=== PATIENT | male | born 1945 | race Caucasian/White ===

== ENCOUNTER 2016-05-23 06:00 | Day surgery (SDC) | payer OTHER ==
[~2016-05-23] VITALS: Ht 165.1 cm; Wt 71.4 kg
[2016-05-23] MEDS ORDERED: SODIUM CHLORIDE 0.9% 1,000 ML IV ONE (06:30)
[2016-05-23] MEDS ORDERED: ALPR0.5T8 PO (07:04)
[2016-05-23] MEDS ORDERED: TRAZ-147 PO (07:04)
[2016-05-23] MEDS ORDERED: SIMV10 PO (07:04)
[2016-05-23] MEDS ORDERED: LEVO500 PO (07:04)
[2016-05-23] MEDS ORDERED: PRED10 PO (07:04)
[2016-05-23] MEDS ORDERED: LOSA1TAB37 PO (07:04)
[2016-05-23] MEDS ORDERED: MONT10TA21 PO (07:04)
[2016-05-23] MEDS ORDERED: FAMO20 PO (07:04)
[2016-05-23] MEDS ORDERED: CITA10TA68 PO (07:04)
[2016-05-23] MEDS ORDERED: MethylPREDNISolone SOD SUCC 125 MG/2 ML VIAL IVP ONE (08:45)
[2016-05-23] MEDS ORDERED: ALBUTEROL SULFATE 2.5 MG/0.5 ML NEB SOLUTION NEB ONE (17:38)
[2016-05-23] MEDS ORDERED: LIDOCAINE HCL 2% 30 ML JELLY TP ONE (17:38)
[2016-05-23] MEDS ORDERED: LIDOCAINE HCL 4% 50 ML SOLUTION TP ONE (17:38)
[2016-05-23] MEDS ORDERED: BENZOCAINE 20% 50 MCG/SPRAY 57 GM TP ONE (17:38)
[2016-05-23] MEDS ORDERED: OXYGEN THERAPY IH SCH (20:00)
== END 2016-05-23 10:25 | disposition home or self-care (01) ==
LOC: SURGERY 06:00
PROVIDERS: ATTEND Internal Medicine Critical Care Medicine
DX: J38.4 Edema of larynx (principal); I10 Essential (primary) hypertension; E78.00 Pure hypercholesterolemia, unspecified; M19.90 Unspecified osteoarthritis, unspecified site; Z87.891 Personal history of nicotine dependence
CPT/HCPCS: 31623; 31624; 87015; 87070; 87101; 87147; 87205; 87220; 88108; 88312

== ENCOUNTER 2018-06-11 06:52 | Day surgery (SDC) | payer OTHER ==
[~2018-06-11] VITALS: Ht 165.1 cm; Wt 78.6 kg
[~2018-06-11 06:52] MED LIST: ALPR0.5T8 PO; CITA10TA68 PO; FAMO20 PO; LEVO500 PO; LOSA1TAB37 PO; MONT10TA21 PO; PRED10 PO; SIMV-259 PO; TRAZ-220 PO
[2018-06-11] MEDS ORDERED: BENZOCAINE 20% 50 MCG/SPRAY 57 GM TP ONE (06:53)
[2018-06-11] MEDS ORDERED: ALBUTEROL SULFATE 2.5 MG/0.5 ML NEB SOLUTION NEB ONE (06:53)
[2018-06-11] MEDS ORDERED: LIDOCAINE 2% 30 ML JELLY TP ONE (06:53)
[2018-06-11] MEDS ORDERED: LIDOCAINE 4% 50 ML SOLUTION TP ONE (06:53)
[2018-06-11] MEDS ORDERED: SODIUM CHLORIDE 0.9% 1,000 ML IV ONE ×2 (07:00→07:17)
[2018-06-11] MEDS ORDERED: MIDAZOLAM HCL 2 MG/2 ML VIAL ONE (08:06)
[2018-06-11] MEDS ORDERED: FentaNYL CITRATE-PF 100 MCG/2 ML VIAL ONE (08:06)
[2018-06-11] MEDS ORDERED: MethylPREDNISolone SOD SUCC 125 MG/2 ML VIAL IVP ONE (09:00)
[2018-06-11] MEDS ORDERED: MethylPREDNISolone SOD SUCC 125 MG/2 ML VIAL ONE (09:25)
[2018-06-11] MEDS ORDERED: OXYGEN THERAPY IH SCH (20:00)
== END 2018-06-11 10:50 | disposition home or self-care (01) ==
LOC: SURGERY 06:52
PROVIDERS: ATTEND Internal Medicine Critical Care Medicine
DX: J38.4 Edema of larynx (principal); B37.0 Candidal stomatitis; J45.909 Unspecified asthma, uncomplicated; Z72.89 Other problems related to lifestyle; Z98.890 Other specified postprocedural states
CPT/HCPCS: 31623; 31624; 71045; 87015; 87070; 87101; 87205; 87206; 87220; 88108; 88312; J2250; J2930; J3010; J7030

== ENCOUNTER 2019-08-23 06:31 | Day surgery (SDC) | payer OTHER ==
[~2019-08-23] VITALS: Ht 167.6 cm; Wt 83.0 kg
[~2019-08-23 06:31] MED LIST changes: -CITA10TA68 PO; +CITA10TA99 PO; +LEVO-72 PO; -LEVO500 PO; +SODIUM CHLORIDE 0.9% 1,000 ML IV ONE; +SODIUM CHLORIDE 0.9% 1,000 ML ONE; -TRAZ-220 PO; +TRAZ-257 PO
[2019-08-23] MEDS ORDERED: ALBUTEROL SULFATE 2.5 MG/0.5 ML NEB SOLUTION NEB ONE (06:32)
[2019-08-23] MEDS ORDERED: LIDOCAINE 2% 30 ML JELLY TP ONE (06:32)
[2019-08-23] MEDS ORDERED: BENZOCAINE 20% 50 MCG/SPRAY 57 GM TP ONE (06:32)
[2019-08-23] MEDS ORDERED: FentaNYL CITRATE-PF 100 MCG/2 ML VIAL ONE (07:44)
[2019-08-23] MEDS ORDERED: MIDAZOLAM HCL 2 MG/2 ML VIAL ONE (07:44)
[2019-08-23] MEDS ORDERED: MethylPREDNISolone SOD SUCC 125 MG/2 ML VIAL IVP ONE (09:15)
[2019-08-23] MEDS ORDERED: MethylPREDNISolone SOD SUCC 125 MG/2 ML VIAL ONE (10:12)
[2019-08-23] MEDS ORDERED: OXYGEN THERAPY IH SCH (20:00)
== END 2019-08-23 11:05 | disposition home or self-care (01) ==
LOC: SURGERY 06:31
PROVIDERS: ATTEND Internal Medicine Critical Care Medicine
DX: J38.4 Edema of larynx (principal); B37.0 Candidal stomatitis; E78.00 Pure hypercholesterolemia, unspecified; F32.9 Major depressive disorder, single episode, unspecified; M19.049 Primary osteoarthritis, unspecified hand; Z11.59 Encounter for screening for other viral diseases
CPT/HCPCS: 31623; 31624; 71045; 87015; 87070; 87101; 87205; 87206; 87220; 87635; 88108; 88312; J2250; J2930; J3010; J7030

== ENCOUNTER 2021-11-05 06:02 | Day surgery (SDC) | payer OTHER ==
[~2021-11-05] VITALS: Ht 165.1 cm; Wt 72.7 kg
[~2021-11-05 06:02] MED LIST changes: +ALPR-707 PO; -ALPR0.5T8 PO; +MONT-35 PO; -MONT10TA21 PO; +PRED-729 PO; -PRED10 PO; -SODIUM CHLORIDE 0.9% 1,000 ML IV ONE; -SODIUM CHLORIDE 0.9% 1,000 ML ONE
[2021-11-05] MEDS ORDERED: LIDOCAINE 2% 11 ML JELLY TP ONE ×2 (06:03)
[2021-11-05] MEDS ORDERED: LIDOCAINE 4% 50 ML SOLUTION TP ONE (06:03)
[2021-11-05] MEDS ORDERED: BENZOCAINE 20% 50 MCG/SPRAY 57 GM TP ONE (06:03)
[2021-11-05] MEDS ORDERED: ALBUTEROL SULFATE 2.5 MG/0.5 ML NEB SOLUTION NEB ONE (06:03)
[2021-11-05 06:24] LABS: COVID AG,FIA SOURCE NASAL SWAB
[2021-11-05] MEDS ORDERED: SODIUM CHLORIDE 0.9% 1,000 ML IV ONE (06:30)
[2021-11-05] MEDS ORDERED: SODIUM CHLORIDE 0.9% 1,000 ML ONE (07:06)
[2021-11-05] MEDS ORDERED: FentaNYL CITRATE PF 100 MCG/2 ML VIAL ONE (07:40)
[2021-11-05] MEDS ORDERED: MIDAZOLAM HCL 5 MG/ML VIAL ONE (07:41)
[2021-11-05] MEDS ORDERED: MethylPREDNISolone SOD SUCC 125 MG/2 ML VIAL ONE (09:29)
[2021-11-05] MEDS ORDERED: MethylPREDNISolone SOD SUCC 125 MG/2 ML VIAL IVP ONE (09:45)
[2021-11-08 06:50] LABS: GLUCOMETER DEV NAME(LOC) SDS.; GLUCOSE,POINT OF CARE 80 MG/DL (70-110)
== END 2021-11-05 11:20 | disposition home or self-care (01) ==
LOC: SURGERY 06:02
PROVIDERS: ATTEND Internal Medicine Critical Care Medicine
DX: J38.4 Edema of larynx (principal); B37.0 Candidal stomatitis; Z79.899 Other long term (current) drug therapy; Z98.890 Other specified postprocedural states
CPT/HCPCS: 31623; 88305; 88112; 82962; 87206; 87101; 87220; 87070; 88312; 31624; 71045; 87015; 87426; J3010; J2930; J2250; Q9967; J7030; C9803; J7613; Z7610